=== PATIENT | male | born 1975 | race Caucasian/White ===

== ENCOUNTER 2020-10-23 18:18 | Emergency (ER) | payer BC ==
[~2020-10-23] VITALS: Ht 190.5 cm; Wt 74.8 kg
[2020-10-23] MEDS ORDERED: FLUC200T PO (18:58)
[2020-10-23] MEDS ORDERED: SULF1TAB48 PO (18:58)
[2020-10-23] MEDS ORDERED: CEPH500T PO (18:58)
[2020-10-23] MEDS ORDERED: SULFAMETH/TRIMETH 800/160 MG TABLET PO ONE (19:00)
[2020-10-23] MEDS ORDERED: CEFTRIAXONE 1 G VIAL IM ONE (19:00)
[2020-10-23] MEDS ORDERED: FLUCONAZOLE 100 MG TABLET PO ONE (19:00)
[2020-10-23] MEDS ORDERED: SULFAMETH/TRIMETH 800/160 MG TABLET ONE (19:06)
[2020-10-23] MEDS ORDERED: CEFTRIAXONE 1 G VIAL ONE (19:06)
[2020-10-23] MEDS ORDERED: FLUCONAZOLE 100 MG TABLET ONE (19:06)
[2020-10-23] MEDS ORDERED: LIDOCAINE HCL 1% 20 ML VIAL ONE (19:07)
--- NOTE | 2020-10-23 19:11 | NUR ---
Patient discharged to home in stable condition. Written and verbal after care instructions given. Patient verbalizes understanding of instructions. Stressed follow up or return to ER for worsening s/s.
== END 2020-10-23 19:13 | disposition home or self-care (01) ==
LOC: ER 18:23
DX: L03.032 Cellulitis of left toe (principal)
CPT/HCPCS: 96372; 99283; J0696; J3490; A4663